=== PATIENT | female | born 1970 | race Caucasian/White ===

== ENCOUNTER 2016-06-22 16:20 | Emergency (ER) | payer SELFPAY ==
[~2016-06-22] VITALS: Ht 157.5 cm; Wt 66.8 kg
[2016-06-22 20:12] VITALS: BP 141/91
== END 2016-06-22 20:12 | disposition home or self-care (01) ==
LOC: ED 16:20
DX: S39.012A Strain of muscle, fascia and tendon of lower back, initial encounter (principal); M54.42 Lumbago with sciatica, left side; I10 Essential (primary) hypertension; E11.9 Type 2 diabetes mellitus without complications; G62.9 Polyneuropathy, unspecified; E66.9 Obesity, unspecified; X58.XXXA Exposure to other specified factors, initial encounter; Y93.89 Activity, other specified; Y99.8 Other external cause status; Y92.89 Other specified places as the place of occurrence of the external cause
CPT/HCPCS: J1885

== ENCOUNTER 2016-08-10 09:21 | Emergency (ER) | payer OTHER ==
[~2016-08-10] VITALS: Ht 157.5 cm; Wt 72.6 kg
[2016-08-10 10:11] LABS: BASOPHIL % 0.6 % (0-2); PLATELET COUNT 323 x10^3mcL (130-400)
[2016-08-10 10:12] LABS: RED CELL DISTRIBUTION WIDTH 14.6 % (11.5-14.5)
[2016-08-10 10:16] LABS: UA SPECIFIC GRAVITY <=1.005 (1.005-1.035); microscopic required? YES; urine erythrocyte TRACE (NEGATIVE)
[2016-08-10 10:19] LABS: CALCIUM 8.5 mg/dL (8.5-10.1); CARBON DIOXIDE 22.9 mmol/L (21-32); CHLORIDE SERUM 104 mmol/L (98-107); CREATININE SERUM 1.1 mg/dL (0.6-1.0); GFR1 57 mL/min; GLUCOSE SERUM 431 mg/dL (74-106); POTASSIUM SERUM 3.2 mmol/L (3.5-5.1); SODIUM SERUM 139 mmol/L (136-145)
[2016-08-10 10:23] LABS: ALKALINE PHOSPHATASE 87 U/L (46-116); ALT/SGPT 17 U/L (14-59); AST/SGOT 11 U/L (15-37); BILIRUBIN TOTAL 0.24 mg/dL (0.20-1.00); HDL CHOLESTEROL 37 mg/dL (40-60); LIPASE 336 IU/L (73-393); TOTAL PROTEIN, SERUM 7.2 g/dL (6.4-8.2)
[2016-08-10 10:24] LABS: ALBUMIN 3.2 g/dL (3.4-5.0); CHOLESTEROL 225 mg/dL (<200); CHOLESTEROL/HDL RATIO 6.1; TRIGLYCERIDES 482 mg/dL (<150)
[2016-08-10 10:42] LABS: FREE T4 1.24 ng/dL (0.76-1.46); FREE THYROXINE INDEX 3.3 ug/dL (1.4-4.5); T4(THYROXINE) 9.3 ug/dL (4.7-13.3)
[2016-08-10 11:31] LABS: T3 TOTAL 1.11 ng/mL
[2016-08-10 12:01] VITALS: BP 164/88
== END 2016-08-10 12:01 | disposition home or self-care (01) ==
LOC: ED 09:21
PROVIDERS: Specialist
DX: F41.9 Anxiety disorder, unspecified (principal); E11.9 Type 2 diabetes mellitus without complications; I10 Essential (primary) hypertension; Z79.4 Long term (current) use of insulin
CPT/HCPCS: 82962; 83880; 84439; J0360; J1815; J1885; J2060; Q0092

== ENCOUNTER 2016-08-17 17:40 | Emergency (ER) | payer MEDICAID ==
[~2016-08-17] VITALS: Ht 154.9 cm; Wt 70.0 kg
[2016-08-17 17:51] VITALS: BP 143/88
== END 2016-08-17 20:17 | disposition home or self-care (01) ==
LOC: ED 17:40
DX: M54.16 Radiculopathy, lumbar region (principal); I10 Essential (primary) hypertension; E11.9 Type 2 diabetes mellitus without complications; Z79.4 Long term (current) use of insulin; Z79.899 Other long term (current) drug therapy

== ENCOUNTER 2016-08-23 14:40 | Emergency (ER) | payer MEDICAID ==
[2016-08-23 17:35] VITALS: BP 139/99
== END 2016-08-23 17:35 | disposition home or self-care (01) ==
LOC: ED 14:40
DX: M54.42 Lumbago with sciatica, left side (principal); I10 Essential (primary) hypertension; E11.9 Type 2 diabetes mellitus without complications; Z79.4 Long term (current) use of insulin; Z79.1 Long term (current) use of non-steroidal anti-inflammatories (NSAID)

== ENCOUNTER 2016-09-09 08:16 | Emergency (ER) | payer OTHER ==
[~2016-09-09] VITALS: Ht 154.9 cm; Wt 69.8 kg
[2016-09-09] MEDS ORDERED: MELOXICAM7.5 M1 PO (08:41)
[2016-09-09] MEDS ORDERED: LIPI10 PO (08:41)
[2016-09-09] MEDS ORDERED: CYCLOBENZAPRINE10 MG PO (08:42)
[2016-09-09] MEDS ORDERED: BACLOFEN20 MG PO (08:42)
[2016-09-09] MEDS ORDERED: ZESTRIL20 MG PO (08:43)
[2016-09-09] MEDS ORDERED: HYDROCHLOROTHIA25 MG PO (08:43)
[2016-09-09] MEDS ORDERED: GABAPENTIN100 M2 PO (08:43)
[2016-09-09] MEDS ORDERED: IBUPROFEN400 MG PO (08:44)
[2016-09-09 09:17] LABS: BASOPHIL % 0.5 % (0-2); PLATELET COUNT 332 x10^3mcL (130-400); RED CELL DISTRIBUTION WIDTH 13.8 % (11.5-14.5)
[2016-09-09 09:37] LABS: ALBUMIN 3.4 g/dL (3.4-5.0); BILIRUBIN TOTAL 0.51 mg/dL (0.20-1.00); CALCIUM 8.7 mg/dL (8.5-10.1); CARBON DIOXIDE 27.6 mmol/L (21-32); CREATININE SERUM 1.3 mg/dL (0.6-1.0); TOTAL PROTEIN, SERUM 7.3 g/dL (6.4-8.2)
[2016-09-09 09:39] LABS: CHOLESTEROL/HDL RATIO 4.9
[2016-09-09 09:42] LABS: POTASSIUM SERUM 2.7 mmol/L (3.5-5.1)
[2016-09-09 09:48] LABS: FREE T4 1.42 ng/dL (0.76-1.46)
[2016-09-09 09:49] LABS: FREE THYROXINE INDEX 3.5 ug/dL (1.4-4.5)
[2016-09-09 09:52] LABS: microscopic required? YES; urine erythrocyte TRACE (NEGATIVE)
[2016-09-09 11:11] VITALS: BP 147/89
[2016-09-09 14:59] LABS: T3 TOTAL 1.05 ng/mL
== END 2016-09-09 11:11 | disposition home or self-care (01) ==
LOC: ED 08:16
PROVIDERS: Specialist
DX: F41.9 Anxiety disorder, unspecified (principal); M54.42 Lumbago with sciatica, left side; E87.6 Hypokalemia; E11.9 Type 2 diabetes mellitus without complications; I10 Essential (primary) hypertension; Z79.84 Long term (current) use of oral hypoglycemic drugs; Z79.899 Other long term (current) drug therapy
CPT/HCPCS: 83880; 84439; J7030; Q0092

== ENCOUNTER 2018-01-30 19:11 | Emergency (ER) | payer OTHER ==
[~2018-01-30] VITALS: Ht 152.4 cm; Wt 70.3 kg
[~2018-01-30 19:11] MED LIST: BACLOFEN20 MG PO; CYCLOBENZAPRINE10 MG PO; GABAPENTIN100 M2 PO; HYDROCHLOROTHIA25 MG PO; IBUPROFEN400 MG PO; LIPI10 PO; MELOXICAM7.5 M1 PO; ZESTRIL20 MG PO
[2018-01-30 19:15] VITALS: Ht 152.4 cm; Wt 70.3 kg
[2018-01-30 20:31] LABS: BASOPHIL % 0.6 % (0-2); PLATELET COUNT 340 x10^3mcL (130-400); RED CELL DISTRIBUTION WIDTH 14.1 % (11.5-14.5)
[2018-01-30 21:23] LABS: CALCIUM 8.4 mg/dL (8.5-10.1); CARBON DIOXIDE 29.2 mmol/L (21-32); CHLORIDE SERUM 99 mmol/L (98-107); GFR1 > 60 mL/min; GLUCOSE SERUM 290 mg/dL (74-106); POTASSIUM SERUM 3.3 mmol/L (3.5-5.1); SODIUM SERUM 135 mmol/L (136-145)
[2018-01-30 21:29] LABS: ALBUMIN 3.2 g/dL (3.4-5.0); ALKALINE PHOSPHATASE 84 U/L (46-116); ALT/SGPT 20 U/L (14-59); AST/SGOT 11 U/L (15-37); BILIRUBIN TOTAL 0.31 mg/dL (0.20-1.00); LIPASE 319 IU/L (73-393); TOTAL PROTEIN, SERUM 7.1 g/dL (6.4-8.2)
[2018-01-30 21:30] LABS: CHOLESTEROL 225 mg/dL (<200); HDL CHOLESTEROL 32 mg/dL (40-60); TRIGLYCERIDES 667 mg/dL (<150)
[2018-01-30 22:32] VITALS: BP 168/98
== END 2018-01-30 22:32 | disposition home or self-care (01) ==
LOC: ED 19:11
PROVIDERS: Emergency Medicine
DX: R10.11 Right upper quadrant pain (principal); E11.65 Type 2 diabetes mellitus with hyperglycemia; I10 Essential (primary) hypertension; G62.9 Polyneuropathy, unspecified; E78.00 Pure hypercholesterolemia, unspecified; E78.1 Pure hyperglyceridemia; Z90.49 Acquired absence of other specified parts of digestive tract; Z76.0 Encounter for issue of repeat prescription
CPT/HCPCS: 36415; J1885